=== PATIENT | male | born 1960 | race Caucasian/White ===

== ENCOUNTER 2020-03-09 10:21 | Emergency (ER) | payer MEDICARE, MEDICAID, SELFPAY ==
[2020-03-09 10:33] VITALS: BP 179/130; PULSE 100; RESP 16; TEMP 36.7; O2SAT 95; BMI 27.8
--- NOTE | 2020-03-09 10:49 | ED_ITS ---
HPI - Dental/Oral General Chief complaint: Dental/Oral <CADENCE Conrad - Last Filed: 03/09/20 13:45> Stated complaint: Dental infection <CADENCE Conrad - Last Filed: 03/09/20 13:45> Source: patient <CADENCE Conrad - Last Filed: 03/09/20 13:45> Mode of arrival: ambulatory <CADENCE Conrad - Last Filed: 03/09/20 13:45> Limitations: no limitations <CADENCE Conrad - Last Filed: 03/09/20 13:45> History of Present Illness HPI Narrative: Patient presents to ED for right lower molar dental pain. Patient states no swelling, fever, chills, drooling, chest pain, or shortness of breath. <CADENCE Conrad - Last Filed: 03/09/20 13:45> MD Complaint: tooth pain <CADENCE Conrad Last Filed: 03/09/20 13:45> Related Data Home medications: Previous Rx's Medication Instructions Recorded amlodipine [Norvasc] 5 mg PO DAILY #10 tab 03/09/20 amoxicillin 500 mg PO Q8H #21 cap 03/09/20 oxycodone-acetaminophen [Percocet] 1 tab PO TID PRN #9 tab 03/09/20 penicillin V potassium 1,000 mg PO BID 10 Days #40 tab 03/14/20 <CADENCE Conrad - Last Filed: 03/09/20 13:45> Allergies/adverse reactions: Allergies Allergy/AdvReac Type Severity Reaction Status Date / Time amoxicillin [AMOXICILLIN] Allergy Unknown REDNESS Unverified 12/24/19 17:14 <CADENCE Conrad - Last Filed: 03/09/20 13:45> Review of Systems Review of Systems: Yes all other systems are reviewed and are negative <CADENCE Conrad Last Filed: 03/09/20 13:45> Constitutional: Constitutional: Reports as per HPI and Reports no additional constitutional complaints <CADENCE Conrad Last Filed: 03/09/20 13:45> Eyes: Eyes: Reports as per HPI and Reports no additional eye complaints <CADENCE Conrad Last Filed: 03/09/20 13:45> Comments: Positive for right dental pain. <CADENCE Conrad - Last Filed: 03/09/20 13:45> ENT: Reports system reviewed and no additional complaints, except as documented and Reports as per HPI <CADENCE Conrad - Last Filed: 03/09/20 13:45> Cardiovascular: Cardiovascular: Reports as per HPI and Reports no additional cardiovascular complaints <CADENCE Conrad - Last Filed: 03/09/20 13:45> Respiratory: Respiratory: Reports as per HPI and Reports no additional respiratory complaints <CADENCE Conrad - Last Filed: 03/09/20 13:45> Gastrointestinal: Gastrointestinal: Reports as per HPI and Reports no additional gastrointestinal complaints <CADENCE Conrad - Last Filed: 03/09/20 13:45> Genitourinary: Genitourinary: Reports no additional male genitourinary complaints and Reports as per HPI <CADENCE Conrad - Last Filed: 03/09/20 13:45> Musculoskeletal: Musculoskeletal: Reports no additional musculoskeletal complaints and Reports as per HPI <CADENCE Conrad - Last Filed: 03/09/20 13:45> Neurologic: Reports system reviewed and no additional complaints, except as documented and Reports as per HPI <CADENCE Conrad Last Filed: 03/09/20 13:45> Psychiatric: Psychiatric: Reports no additional psychiatric complaints and Reports as per HPI <CADENCE Conrad Last Filed: 03/09/20 13:45> PMFSH Past Medical History Medical History: Medical History Amputation of arm Seizures <CADENCE Conrad - Last Filed: 03/09/20 13:45> Surgical History: Surgical History H/O brain surgery <CADENCE Conrad - Last Filed: 03/09/20 13:45> Social History Social History: Social History Advance Directives: No Advance Directives Information Provided: No <CADENCE Conrad Last Filed: 03/09/20 13:45> Physical Exam Vital Signs: Vital Signs: Last Vital Signs Temp 98.1 F 03/09/20 10:33 Pulse 100 03/09/20 10:33 Resp 16 03/09/20 10:33 BP 179/130 H 03/09/20 10:33 Pulse Ox 95 03/09/20 10:33 Body Mass Index 27.8 <CADENCE Conrad - Last Filed: 03/09/20 13:45> Vital Signs: Last Vital Signs Temp 98.1 F 03/09/20 10:33 Pulse 100 03/09/20 10:33 Resp 16 03/09/20 10:33 BP 179/130 H 03/09/20 10:33 Pulse Ox 95 03/09/20 10:33 Body Mass Index 27.8 <Nelson Wilson MD - Last Filed: 03/27/20 20:25> Const: General: cooperative, healthy appearing, comfortable, no acute distress, well developed, alert and awake <CADENCE Conrad - Last Filed: 03/09/20 13:45> Orientation/consciousness: patient oriented x3 <CADENCE Conrad - Last Filed: 03/09/20 13:45> HENMT: Other: Patient has 1 tooth in oral cavity within the right lower molar that is tender to palpation. Negative for any surrounding gum swelling or fluctuance abscess. <CADENCE Conrad - Last Filed: 03/09/20 13:45> Head: Yes normal to inspection and Yes No palpable skull fracture present <CDAENCE Conrad - Last Filed: 03/09/20 13:45> Ears: hearing grossly normal bilaterally and external ears normal <CADENCE Conrad - Last Filed: 03/09/20 13:45> General nose exam: Normal external nose present and Normal nares present <CADENCE Conrad Last Filed: 03/09/20 13:45> Face and sinus: Yes normal facial exam and Yes sinuses nontender <CADENCE Conrad Last Filed: 03/09/20 13:45> Mouth: Normal oral and palatal mucosa present and lip normal <CADENCE Conrad Last Filed: 03/09/20 13:45> Throat: Yes posterior oropharynx normal and Yes uvula midline <CADENCE Conrad Last Filed: 03/09/20 13:45> Eyes: General: appearance normal, both eyes and all related structures <CADENCE Conrad Last Filed: 03/09/20 13:45> Neck: Neck: Yes normal visual inspection, Yes full ROM and Yes no lymphadenopathy <CADENCE Conrad Last Filed: 03/09/20 13:45> Chest: Chest palpation & inspection: normal inspection of the chest and normal palpation of entire chest wall <CADENCE Conrad Last Filed: 03/09/20 13:45> Resp: Effort & Inspection: normal respiratory effort and able to speak in complete sentences <Greg Scales [facility] Last Filed: 03/09/20 13:45> Auscultation: clear to auscultation bilaterally <Greg Scales [facility] Last Filed: 03/09/20 13:45> Cardio: Jugular venous distension: no JVD <Greg Scales [facility] Last Filed: 03/09/20 13:45> Heart sounds: S1 normal heart sound present and S2 normal heart sound present <CADENCE Conrad Last Filed: 03/09/20 13:45> GI: Inspection: Yes normal to inspection <Greg Scales [place] Last Filed: 03/09/20 13:45> : General: No CVA tenderness and Yes no CVA tenderness <CADENCE Conrad Last Filed: 03/09/20 13:45> Back/Spine/Pelvis: Back: no CVA tenderness, No CVA tenderness and No back tenderness <CADENCE Conrad Last Filed: 03/09/20 13:45> Skin: General skin exam: no rashes or lesions noted <Greg Scales [place] Last Filed: 03/09/20 13:45> Neuro: General: patient oriented x3, gait normal and CN's II-XI intact bilaterally <CADENCE Conrad Last Filed: 03/09/20 13:45> Cranial nerves: Yes CN's II-XII intact bilaterally <Greg Scales [place] Last Filed: 03/09/20 13:45> Extrem: General: Yes normal to inspection and Yes full ROM <CADENCE Conrad Last Filed: 03/09/20 13:45> Psych: Appearance: grossly normal, well kempt and not disheveled <CADENCE Conrad - Last Filed: 03/09/20 13:45> Course Course Course Narrative: patient states that tooth need to be extracted just wants antibiotics and pain medication. At bedside patient's blood pressure was 170/130 and 183/128. Patient denies having any history of high blood pressure. Patient with in formed pain may also cause an elevated blood pressure, but at the same time cannot exclude this as new onset hypertension due to age. Patient informed he will need to do labs, EKG, head CT just to make sure he is not having a stroke or OR. Patient presently is asymptomatic, but this may be new onset hypertension. Patient denies any history of white coat hypertension. Patient was not agreeable to having labs, EKG, or head CT. Patient was made aware of signs of hypertensive urgency versus emergency. Patient states he will call his PCP for follow-up. Will discharge patient with hypertensive blood medication. <CADENCE Conrad - Last Filed: 03/09/20 13:45> I have reviewed the chart <Nelson Wilson MD - Last Filed: 03/27/20 20:25> Reevaluation(s) Reevaluation #1: Tried to convince patient to let us evaluate him for his blood pressure, but patient still refusing and wants to sign out against medical advice. Patient explained and understand risk of , heart attack, kidney failure, and stroke from elevated high blood pressure. <CADENCE Conrad - Last Filed: 03/09/20 13:45> Time: 10:56 <CADENCE Conrad - Last Filed: 03/09/20 13:45> Reevaluation #2: Upon review patient's prior visits there has been diagnosis of past medical history of of high blood pressure. Upon review of recent prescription for this year from pharmacy portal, patient has not been prescribed or taking any antihypertensive medication. patient will be described with norvasc. Patient also was prescribed clindamycin, but he refused clindamycin. Patient states he has no allergy to amoxicillin. Patient requests amoxicillin. Patient also discharged with percocet. once again patient informed of hypertensive urgency versus emergency and further workup to control blood pressure. Patient still wants to sign out against medical advice. most likely patient is a non- compliant hypertensive patient. <CADENCE Conrad - Last Filed: 03/09/20 13:45> Time: 11:12 <CADENCE Conrad - Last Filed: 03/09/20 13:45> MDM - Dental/Oral MDM Narrative Medical decision making narrative: dental pain, elevated high blood pressure <CADENCE Conrad Last Filed: 03/09/20 13:45> Discharge Plan Discharge Clinical Impression: Toothache, Hypertension <CADENCE Conrad Last Filed: 03/09/20 13:45> Patient Disposition: Left Against Medical Advice <CADENCE Conrad - Last Filed: 03/09/20 13:45> Instructions: Toothache (ED), Hypertension in the Older Adult (ED) <CADENCE Conrad Last Filed: 03/09/20 13:45> Additional Instructions: return to the ED immediately for any headache, blurry vision, paralysis of extremities, slurred speech, loss of vision, chest pain, shortness of breath, or any other concerning symptoms. Please call your PCP today immediately and make him aware of elevated blood pressure in the ED. Recommended immediate follow-up. <CADENCE Conrad - Last Filed: 03/09/20 13:45> Prescriptions: New oxycodone-acetaminophen [Percocet] 5-325 mg tablet 1 tab PO TID PRN (Reason: pain) Qty: 9 RF: 0 amlodipine [Norvasc] 5 mg tablet 5 mg PO DAILY Qty: 10 RF: 0 amoxicillin 500 mg capsule 500 mg PO Q8H Qty: 21 RF: 0 No Action penicillin V potassium 500 mg tablet 1,000 mg PO BID 10 Days Qty: 40 RF: 0 <CADENCE Conrad - Last Filed: 03/09/20 13:45> Stand Alone Forms: Against Medical Advice <CADENCE Conrad Last Filed: 03/09/20 13:45> Interventions: ED Discharge Assessment Last Done: 03/09/20 11:21 <CADENCE Conrad Last Filed: 03/09/20 13:45> Discharge Date/Time: 03/09/20 11:22 <CADENCE Conrad Last Filed: 03/09/20 13:45> Print Language: [place] <CADENCE Conrad - Last Filed: 03/09/20 13:45>
--- NOTE | 2020-03-09 11:04 | PC.NURSE ---
pt decliined pain medication during triage and exam by oniel ornelas, pt was to be discharged ama now pt requesting med for pain
[2020-03-09] MEDS: oxyCODONE HCl Immed Release 5 MG TABLET PO (11:13)
== END 2020-03-09 11:22 | disposition left against medical advice (07) ==
PROVIDERS: Emergency Provider Emergency Medicine
DX: K04.7 Periapical abscess without sinus (principal); I10 Essential (primary) hypertension; Z79.899 Other long term (current) drug therapy
CPT/HCPCS: 99283

== ENCOUNTER 2020-03-14 14:05 | Emergency (ER) | payer MEDICARE, MEDICAID, SELFPAY ==
[2020-03-14 14:42] VITALS: BP 189/105; PULSE 95; RESP 18; TEMP 36.5; O2SAT 95; BMI 27.4
--- NOTE | 2020-03-14 15:06 | PC.NURSE ---
PT REFUSING MEDICAL WORK UP BY CADENCE BATES. PT DOES NOT WANT EKG OR BLOOD WORK OR ANY IMAGING AT THIS TIME. RISKS EXPLAINED AND EDUCATION PROVIDED BY THIS RN.
--- NOTE | 2020-03-14 15:08 | ED_ITS ---
HPI - General Adult General Chief complaint: General Medical Stated complaint: jaw and neck pain.problem closing hand Time Seen by Provider: 03/14/20 15:01 Source: patient Mode of arrival: ambulatory Limitations: no limitations History of Present Illness HPI narrative: 59-year-old male presenting to the ED with with complaints of pain to teeth they were extracted going to his neck and his jaw for the past few months. He reports when he was seen here the other day that he was bagging for amoxicillin and they did not give him a strong enough dose he wants 875 mg of amoxicillin although I explained to him that he reported amoxicillin as an allergy and he reports that he is not actually allergic he just gets a bread therefore he still wants amoxicillin 875 or he wants penicillin 1000 mg. I noticed that the patient blood pressure was elevated and I explained to him that I would like to take some blood work, chest x-ray and EKG and patient reports that he will not have any of that done due to he is not having any symptoms from his high blood pressure. He reports he has not started the high blood pressure medication that he was given on 03/09/2020 and that he has not followed up with a primary care provider or a type photography supervisor that he needs to take care of his dental pain/ infection before he does any of that. He denies any other symptom complaints or concerns at this time. Related Data Previous Rx's Medication Instructions Recorded amlodipine [Norvasc] 5 mg PO DAILY #10 tab 03/09/20 amoxicillin 500 mg PO Q8H #21 cap 03/09/20 oxycodone-acetaminophen [Percocet] 1 tab PO TID PRN #9 tab 03/09/20 penicillin V potassium 1,000 mg PO BID 10 Days #40 tab 03/14/20 Allergies Allergy/AdvReac Type Severity Reaction Status Date / Time amoxicillin [AMOXICILLIN] Allergy Unknown REDNESS Unverified 12/24/19 17:14 Review of Systems Review of Systems: Constitutional : No Fever, No Chills, No Night Sweats, No Fatigue, No Malaise ENT/Mouth : No Hearing loss, No Ear Pain, No Nasal Congestion, No Sinus Pain, No Hoarseness, No sore throat, No Rhinorrhea, No Swallowing Difficulty, + Dental/jaw/neck pain Eyes: No Eye Pain, No Swelling, No Redness, No Foreign Body, No Discharge, No Vision Changes Cardiovascular : No Chest Pain, No SOB, No Dyspnea on Exertion, No Orthopnea, No Edema, No Palpitations Respiratory : No Cough, No Sputum, No Wheezing, No Smoke Exposure, No Dyspnea Gastrointestinal : No Nausea, No Vomiting, No Diarrhea, No Constipation, No abdominal Pain, No Hematochezia, No Melena Genitourinary : no irregular bleeding, No Dysuria, No Urinary Frequency, No Hematuria, No Urinary Incontinence, No Urgency, No Flank Pain, No Urinary Flow Changes, No Hesitancy Musculoskeletal : No joint pain, No Myalgias, No Joint Swelling Skin : No Skin Lesions, No rash Neuro : No Weakness, No Numbness, No Paresthesias, No Loss of Consciousness, No Dizziness, No Headache Psych : No Anxiety/Panic, No Depression, No SI/HI/AH/VH, No Social Issues, Heme/Lymph: No Bruising, No Bleeding,No Lymphadenopathy Endocrine : No Polyuria, No Polydipsia, No Temperature Intolerance Yes all other systems are reviewed and are negative [facility] Past Medical History Attestation statement: The following information was validated with the patient. Medical History Amputation of arm Seizures Surgical History H/O brain surgery Social History Social History Advance Directives: No Advance Directives Information Provided: No Physical Exam Vital Signs: Vital Signs: Last Vital Signs Temp 97.7 F 03/14/20 14:42 Pulse 95 03/14/20 14:42 Resp 18 03/14/20 14:42 BP 189/105 H 03/14/20 14:42 Pulse Ox 95 03/14/20 14:42 Body Mass Index 27.4 vital signs have been reviewed as normal and appeared to be correct. Blood p ressure normal. Heart rate normal. Respiration rate normal. Temperature normal. Oxygen saturation normal. Appearance: Alert. Oriented X3. No acute distress. Head: Normal external exam. Normocephalic. Atraumatic. Eyes: PERRLA. EOMI. Conjunctiva and sclera normal. Eyelids normal. ENT: EAC normal. TM's Normal. Pharynx normal. Uvula midline. Moist mucous membranes. No trismus noted. No drooling noted. No muffled voice noted. Patient has 1 tooth an oral cavity within the right lower molar that is tender to palpation. Negative for any surrounding gum swelling or fluctuant abscesses. Neck: Normal inspection. Neck supple. FROM. No adenopathy. Thyroid Normal. No meningeal signs. No neck mass noted. CVS: Normal heart rate and rhythm. Heart sound normal. No murmurs noted. Pulses normal throughout. Respiratory: No respiratory distress. Painless inspiration. Breath sounds normal. No wheezes/rales/rhonchi noted. Chest nontender. No accessory muscle usage noted or decreased air movement noted. Back: Full range of motion noted. Skin: Skin warm and dry. Normal skin color. Normal skin turgor. No rashes/lesions/lacerations noted. Extremities: Extremities exhibit normal range of motion. Extremities nontender. Neuro: Oriented X 3. No motor deficit. No sensory deficit. Reflexes normal. Course Course Course Narrative: Patient reports that his tube needs to be extracted although he needs to make an appointment with his dentist and he just wants antibiotics at this time he is requesting either amoxicillin 875 or penicillin 1000 mg. I explained to the patient's blood pressure was elevated same as last visit here and he reports that he has not taking blood pressure medication and he will not started due to he wants to take care of his dental pain / infection and he takes his medications for seizures and that is more important. I explained to him that this is dangerous she should start taking blood pressure medication and I explained to him that he should have labs, EKG, CT scan of brain and chest x- ray to make sure that he is not having a stroke or an NE although patient reports that he is asymptomatic and he is refusing all evaluation and treatment. I will DC against medical advice with antibiotics and instructions to follow- up with Dr. Morales and his primary care provider. Patient understands and agrees with this plan although reports that he does not think that this is important. I explained to him that he can return at any time. Patient understands agrees with this. Medical Decision Making Medical Records Medical records reviewed: Yes I reviewed the patient's medical records. Discharge Plan Discharge Clinical Impression: Tooth ache, Hypertension Patient Disposition: Left Against Medical Advice Instructions: Hypertension (ED), Toothache (ED) Additional Instructions: Uses start your blood pressure medication as this is the 2nd visit with her blood pressure has been elevated today it was 189/105. I offered do a workup and you want to leave against medical advice this is the 2nd time you do this this is dangerous you can . Please follow-up with the type photography supervisor and a primary care provider as soon as possible and start taking your blood pressure medication that was prescribed on last visit as soon as possible. Prescriptions: New penicillin V potassium 500 mg tablet 1,000 mg PO BID 10 Days Qty: 40 RF: 0 No Action oxycodone-acetaminophen [Percocet] 5-325 mg tablet 1 tab PO TID PRN (Reason: pain) Qty: 9 RF: 0 amlodipine [Norvasc] 5 mg tablet 5 mg PO DAILY Qty: 10 RF: 0 amoxicillin 500 mg capsule 500 mg PO Q8H Qty: 21 RF: 0 Referrals: Jayme Morales MD [Physician] - 2 days ( hypertension) Physician,Unknown [Primary Care Provider] - 2 days (your pcp) Stand Alone Forms: Against Medical Advice Discharge Date/Time: 03/14/20 15:26 Print Language: Telugu
== END 2020-03-14 15:26 | disposition left against medical advice (07) ==
PROVIDERS: Emergency Provider Emergency Medicine
DX: K08.89 Other specified disorders of teeth and supporting structures (principal); I10 Essential (primary) hypertension
CPT/HCPCS: 99282; 99283

== ENCOUNTER 2020-05-04 15:30 | Emergency (ER) | payer MEDICARE, MEDICAID, SELFPAY ==
[2020-05-04 16:45] VITALS: BP 210/119; PULSE 91; RESP 16; TEMP 36.3; O2SAT 98; BMI 29.0
--- NOTE | 2020-05-04 16:58 | ED_ITS ---
HPI - Dental/Oral General Chief complaint: Dental/Oral Stated complaint: Dental pain Time Seen by Provider: 05/04/20 16:46 Source: patient Mode of arrival: ambulatory Limitations: no limitations History of Present Illness HPI Narrative: Patient comes emergency room complaining of dental pain. Patient only has 1 tooth. Patient states he has had extensive surgery in his gums and jaw after an accident. Patient states he was recently on ampicillin. Patient states that he continues having pain despite a 2 week treatment of ampicillin. Patient states he call his dentist, told him to come to the emergency room for a prescription. It was noted on his allergy reaction was in that amoxicillin is listed, patient states he is not allergic to ampicillin or penicillin. Patient denies any fever, no chills, no ear pain. Patient requesting a prescription to bridge him until he sees his dentist. Related Data Previous Rx's Medication Instructions Recorded amlodipine [Norvasc] 5 mg PO DAILY #10 tab 03/09/20 amoxicillin 500 mg PO Q8H #21 cap 03/09/20 oxycodone-acetaminophen [Percocet] 1 tab PO TID PRN #9 tab 03/09/20 penicillin V potassium 1,000 mg PO BID 10 Days #40 tab 03/14/20 penicillin V potassium 500 mg PO TID 10 Days #30 tab 05/04/20 Allergies Allergy/AdvReac Type Severity Reaction Status Date / Time amoxicillin [AMOXICILLIN] Allergy Unknown REDNESS Unverified 12/24/19 17:14 Review of Systems Review of Systems: Constitutional : No Weight loss, No Fever, No Chills, No Night Sweats, No Fatigue, No Malaise ENT/Mouth : No Hearing loss, No Ear Pain, No Nasal Congestion, No Sinus Pain, No Hoarseness, No sore throat, No Rhinorrhea, No Swallowing Difficulty, complaining of acute on chronic dental pain in the right maxilla Eyes: No Eye Pain, No Swelling, No Redness, No Foreign Body, No Discharge, No Vision Changes Cardiovascular : No Chest Pain, No SOB, No Dyspnea on Exertion, No Orthopnea, No Edema, No Palpitations Respiratory : No Cough, No Sputum, No Wheezing, No Smoke Exposure, No Dyspnea Gastrointestinal : No Nausea, No Vomiting, No Diarrhea, No Constipation, No abdominal Pain, No Hematochezia, No Melena Genitourinary : no irregular bleeding, No Dysuria, No Urinary Frequency, No Hematuria, No Urinary Incontinence, No Urgency, No Flank Pain, No Urinary Flow Changes, No Hesitancy Musculoskeletal : No joint pain, No Myalgias, No Joint Swelling Skin : No Skin Lesions, No rash Neuro : No Weakness, No Numbness, No Paresthesias, No Loss of Consciousness, No Dizziness, No Headache Psych : No Anxiety/Panic, No Depression, No SI/HI/AH/VH, No Social Issues, Heme/Lymph: No Bruising, No Bleeding,No Lymphadenopathy Endocrine : No Polyuria, No Polydipsia, No Temperature Intolerance [facility] Past Medical History Medical History Amputation of arm Seizures Surgical History H/O brain surgery Social History Social History Smoked in Last 30 Days: No Use of substances other than those prescribed or required for medical reasons: No Advance Directives: No Advance Directives Information Provided: Yes Physical Exam Vital Signs: Vital Signs: Last Vital Signs Temp 97.4 F 05/04/20 16:45 Pulse 91 05/04/20 16:45 Resp 16 05/04/20 16:45 BP 210/119 H 05/04/20 16:45 Pulse Ox 98 05/04/20 16:45 Body Mass Index 29.0 Appearance: Alert. Oriented X3. No acute distress. Eyes: Pupils equal, round and reactive to light. ENT: Pharynx normal. Pain to palpation on the gum on the right maxilla, no redness, no pus Neck: Normal inspection. Neck supple. No lymph nodes noted. No crepitus CVS: Normal heart rate and rhythm. Pulses normal. Normal S1 and S2 Respiratory: No respiratory distress. Breath sounds normal. No Wheezing. No rales Abdomen: Soft and nontender. No rigidity. No distention. good BS x4 Skin: Skin warm and dry. Normal skin color. Normal skin turgor. Extremities: No lower extremity edema. No lower extremity edema. No Lacerati ons. No Rash Neuro: Oriented X 3. No motor deficit. No sensory deficit. Moving all extermities. No slurred speech. Course Course Course Narrative: I discussed with the patient that we can bridge him, however he needs to have close follow-up with all his specialists due to his extensive dental history. Patient states that he he is not allergic to penicillin or ampicillin, only amoxicillin Discharge Plan Discharge Clinical Impression: Chronic dental pain Patient Disposition: Home, Self-Care Instructions: Toothache (ED) Prescriptions: New penicillin V potassium 500 mg tablet 500 mg PO TID 10 Days Qty: 30 RF: 0 No Action oxycodone-acetaminophen [Percocet] 5-325 mg tablet 1 tab PO TID PRN (Reason: pain) Qty: 9 RF: 0 amlodipine [Norvasc] 5 mg tablet 5 mg PO DAILY Qty: 10 RF: 0 amoxicillin 500 mg capsule 500 mg PO Q8H Qty: 21 RF: 0 penicillin V potassium 500 mg tablet 1,000 mg PO BID 10 Days Qty: 40 RF: 0
== END 2020-05-04 17:27 | disposition home or self-care (01) ==
PROVIDERS: Emergency Provider Emergency Medicine
DX: K02.9 Dental caries, unspecified (principal)
CPT/HCPCS: 99283

== ENCOUNTER 2020-08-18 13:30 | Emergency (ER) | payer MEDICARE, MEDICAID, SELFPAY ==
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
[2020-08-18 14:39] VITALS: BP 173/118; PULSE 87; RESP 16; TEMP 36.6; O2SAT 96; BMI 26.7
== END 2020-08-18 15:09 | disposition home or self-care (01) ==
PROVIDERS: Emergency Provider Emergency Medicine
DX: M26.602 Left temporomandibular joint disorder, unspecified (principal); R03.0 Elevated blood-pressure reading, without diagnosis of hypertension
CPT/HCPCS: 99283

== ENCOUNTER 2020-09-30 13:39 | Emergency (ER) | payer MEDICARE, MEDICAID, SELFPAY ==
[2020-09-30 13:55] VITALS: BP 214/110; PULSE 93; RESP 18; O2SAT 97; BMI 28.5
--- NOTE | 2020-09-30 14:52 | ED_ITS ---
HPI - General Adult General Chief complaint: General Medical Stated complaint: seeking antibiotics Time Seen by Provider: 09/30/20 14:32 Source: patient Mode of arrival: ambulatory Limitations: no limitations History of Present Illness HPI narrative: 59-year-old male with past mental history of TBI, left arm amputation, and anxiety presents with dental pain requesting antibiotics. States that he has had all but 1 tooth removed, and is reporting that he needs surgery. Patient is speaking tangentially, consistent with prior presentations as well as TBI. Patient needs multiple redirections to stay on task however states that his primary concern is the dental infection. He does have an appointment to have this tooth removed. Does not report any pain when opening his jaw, is able to eat and drink with minimal difficulty, denies fevers, chills, chest pain or pressure, palpitations, shortness of breath, shortness of breath on exertion, abdominal pain, abdominal distention, dysuria, hematuria, and edema. He does have a right-sided motility problems per baseline. Onset (ago): day(s) Location: mouth Radiation: non-radiation Severity: moderate Severity scale (1-10): 6 Quality: aching Pain Consistency: constant Relieving factors: none Exacerbating factors: eating Associated symptoms: denies other symptoms Treatments prior to arrival: none Related Data Previous Rx's Medication Instructions Recorded amlodipine [Norvasc] 5 mg PO DAILY #10 tab 03/09/20 amoxicillin 500 mg PO Q8H #21 cap 03/09/20 oxycodone-acetaminophen [Percocet] 1 tab PO TID PRN #9 tab 03/09/20 penicillin V potassium 1,000 mg PO BID 10 Days #40 tab 03/14/20 penicillin V potassium 500 mg PO TID 10 Days #30 tab 05/04/20 amoxicillin 875 mg PO BID #14 tab 08/18/20 hydrocodone-acetaminophen 1 tab PO Q6H PRN #7 tab 08/18/20 amoxicillin-pot clavulanate 1 tab PO Q12H 10 Days #20 tab 09/30/20 [Augmentin] amoxicillin-pot clavulanate 1 tab PO Q12H 10 Days #20 tab 09/30/20 [Augmentin] Allergies Allergy/AdvReac Type Severity Reaction Status Date / Time amoxicillin [AMOXICILLIN] Allergy Intermediate REDNESS Verified 09/30/20 13:54 Review of Systems Review of Systems: Constitutional: No Fever, No Chills ENT/Mouth: Positive dental pain, No Ear Pain, No Hoarseness, No sore throat Eyes: No Eye Pain, No Swelling, No Redness, No Foreign Body Cardiovascular: No Chest Pain, No SOB Respiratory: No Cough, No Dyspnea Gastrointestinal: No Nausea, No Vomiting, No Diarrhea, No abdominal Pain Genitourinary: No Dysuria, No Hematuria Musculoskeletal: No joint pain, No Myalgias, No Joint Swelling Skin: No Skin lacerations, No rash Neuro: No Weakness, No Numbness, No Paresthesias, No Loss of Consciousness, No Dizziness, No Headache Psych: No Anxiety/Panic, No Depression Heme/Lymph: no easy bruising, no Lymphadenopathy Endocrine: No Polyuria, No Polydipsia Yes all other systems are reviewed and are negative [facility] Past Medical History Attestation statement: The following information was validated with the patient. Source: old records reviewed Medical History Amputation of arm COVID-19 Seizures Surgical History H/O brain surgery Social History Social History Advance Directives: Yes Advance Directives Information Provided: No Advance Directives on File: No Physical Exam Vital Signs: Vital Signs: Last Vital Signs Pulse 88 09/30/20 15:12 Resp 18 09/30/20 15:12 BP 185/111 H 09/30/20 15:12 Pulse Ox 97 09/30/20 15:12 Body Mass Index 28.5 Appearance: Alert. Oriented X3. No acute distress. Eyes: Pupils equal, round and reactive to light. ENT: Pharynx normal. Dental caries noted to the base of the only tooth in his mouth Neck: Normal inspection. Neck supple. CVS: Normal heart rate and rhythm. Pulses normal. Respiratory: No respiratory distress. Breath sounds normal. Abdomen: Soft and nontender. Skin: Skin warm and dry. Normal skin color. Normal skin turgor. Extremities: No lower extremity edema. Neuro: No motor deficit. No sensory deficit. Course Course Course Narrative: 59-year-old male presents with dental pain. Does not have an abscess but does have multiple caries to the only tooth in his mouth. Will treat with Augmentin and discharge patient home. Patient does have a history of a TBI, is a poor historian, and requires multiple redirection to stay on task. He is afebrile, vital signs are within normal limits and stable with the exception of his elevated blood pressure. He does report to have blood pressure problems, has not seen his primary care physician recently. Multiple discussions with patient regarding elevated blood pressure, he will follow-up with his primary care physician which she has an appointment in [place] later this week. Patient does have an upcoming appointment to remove the only tooth in his mouth, it is difficult to determine what number tooth this is as he has only 1. Patient verbalized understanding of and agrees to plan of care discharge home. Medical Decision Making MDM Narrative Medical decision making narrative: Dental abscess, dental caries Medical Records Medical records reviewed: Yes I reviewed the patient's medical records. Discharge Plan Discharge Clinical Impression: Chronic dental infection Patient Disposition: Home, Self-Care Instructions: Toothache (ED) Additional Instructions: You were evaluated for chronic dental pain. Please take Augmentin 875 mg twice a day for the next 10 days. Follow up with your dentist. While you were in the emergency department was noted that your blood pressure was elevated. Please follow-up the primary care physician as you may need medications to control your blood pressure. Thank you for choosing this emergency department for evaluation. Please follow-up with primary care physician as needed. Return to the emergency department for any new, concerning, or worsening symptoms. Prescriptions: New amoxicillin-pot clavulanate [Augmentin] 875-125 mg tablet 1 tab PO Q12H 10 Days Qty: 20 RF: 0 amoxicillin-pot clavulanate [Augmentin] 875-125 mg tablet 1 tab PO Q12H 10 Days Qty: 20 RF: 0 No Action hydrocodone-acetaminophen 5-325 mg tablet 1 tab PO Q6H PRN (Reason: pain) Qty: 7 RF: 0 amoxicillin 875 mg tablet 875 mg PO BID Qty: 14 RF: 0 oxycodone-acetaminophen [Percocet] 5-325 mg tablet 1 tab PO TID PRN (Reason: pain) Qty: 9 RF: 0 amlodipine [Norvasc] 5 mg tablet 5 mg PO DAILY Qty: 10 RF: 0 amoxicillin 500 mg capsule 500 mg PO Q8H Qty: 21 RF: 0 penicillin V potassium 500 mg tablet 1,000 mg PO BID 10 Days Qty: 40 RF: 0 penicillin V potassium 500 mg tablet 500 mg PO TID 10 Days Qty: 30 RF: 0 Interventions: ED Discharge Assessment Last Done: 09/30/20 15:34 Discharge Date/Time: 09/30/20 15:37
[2020-09-30 15:12] VITALS: BP 185/111; PULSE 88; RESP 18; O2SAT 97
[2020-09-30] MEDS: Amoxicillin/Potassium Clav 875 MG TABLET PO (15:23)
== END 2020-09-30 15:37 | disposition home or self-care (01) ==
PROVIDERS: Emergency Provider Emergency Medicine
DX: K04.7 Periapical abscess without sinus (principal); K02.9 Dental caries, unspecified; Z87.820 Personal history of traumatic brain injury; Z89.202 Acquired absence of left upper limb, unspecified level
CPT/HCPCS: 99283

== ENCOUNTER 2020-12-02 16:29 | Emergency (ER) | payer MEDICARE, MEDICAID, SELFPAY ==
[2020-12-02 16:48] VITALS: BP 140/57; PULSE 96; RESP 18; TEMP 36.9; O2SAT 98; BMI 29.0
--- NOTE | 2020-12-02 19:20 | PC.NURSE ---
pt refusing lab work, reports he will only have lab work drawn by a anesthesiologist because he turns black and blue and screams .
--- NOTE | 2020-12-02 19:31 | PC.NURSE ---
pt refusing CT and X-ray, reporting that he knows he has an infection and he just needs Penicillin
--- NOTE | 2020-12-02 19:37 | PC.NURSE ---
pt spoke with . he continues to refuse lab work and imaging. pt was agreeable to being COVID swabbed. he started to this RN, when will be that back? will you call me? I need to get out of here I have my 80 year old father in the car and I need to go somewhere else to get antibiotics
[2020-12-02 21:27] LABS: Influenza A PCR NEGATIVE (Negative); Influenza B PCR NEGATIVE (Negative); Resp Syncy Virus RNA Qual PCR NEGATIVE (Negative); SARS COV2 PCR INHOUSE NEGATIVE (Negative)
--- NOTE | 2020-12-02 21:28 | ED.GENADULT ---
HPI - General Adult General Chief complaint: General Medical Stated complaint: infection in jaw Time Seen by Provider: 12/02/20 21:28 Related Data Previous Rx's Medication Instructions Recorded amlodipine 5 mg tablet (Norvasc) 5 mg PO DAILY #10 tab 03/09/20 amoxicillin 500 mg capsule 500 mg PO Q8H #21 cap 03/09/20 oxycodone-acetaminophen 5 mg-325 1 tab PO TID PRN #9 tab 03/09/20 mg tablet (Percocet) penicillin V potassium 500 mg 1,000 mg PO BID 10 Days #40 tab 03/14/20 tablet penicillin V potassium 500 mg 500 mg PO TID 10 Days #30 tab 05/04/20 tablet amoxicillin 875 mg tablet 875 mg PO BID #14 tab 08/18/20 hydrocodone 5 mg-acetaminophen 325 1 tab PO Q6H PRN #7 tab 08/18/20 mg tablet amoxicillin 875 mg-potassium 1 tab PO Q12H 10 Days #20 tab 09/30/20 clavulanate 125 mg tablet (Augmentin) amoxicillin 875 mg-potassium 1 tab PO Q12H 10 Days #20 tab 09/30/20 clavulanate 125 mg tablet (Augmentin) Allergies Allergy/AdvReac Type Severity Reaction Status Date / Time amoxicillin [AMOXICILLIN] Allergy Intermediate REDNESS Verified 12/02/20 16:48 PMFSH Past Medical History Medical History Amputation of arm COVID-19 Seizures Surgical History H/O brain surgery Social History Social History Advance Directives: No Advance Directives Information Provided: Yes Physical Exam Vital Signs: Vital Signs: Last Vital Signs Temp 98.4 F 12/02/20 16:48 Pulse 96 12/02/20 16:48 Resp 18 12/02/20 16:48 BP 140/57 H 12/02/20 16:48 Pulse Ox 98 12/02/20 16:48 Body Mass Index 29.0 Medical Decision Making Lab Data Labs: Lab Results 12/02/20 Range/Units 20:22 Coronavirus (PCR) NEGATIVE (Negative) Influenza Type A (PCR) NEGATIVE (Negative) Influenza Type B (PCR) NEGATIVE (Negative) RSV RNA Qual (PCR) NEGATIVE (Negative) Discharge Plan Discharge Clinical Impression: General medical exam Patient Disposition: Elopement Prescriptions: No Action hydrocodone-acetaminophen 5-325 mg tablet 1 tab PO Q6H PRN (Reason: pain) Qty: 7 RF: 0 amoxicillin 875 mg tablet 875 mg PO BID Qty: 14 RF: 0 oxycodone-acetaminophen [Percocet] 5-325 mg tablet 1 tab PO TID PRN (Reason: pain) Qty: 9 RF: 0 amlodipine [Norvasc] 5 mg tablet 5 mg PO DAILY Qty: 10 RF: 0 amoxicillin 500 mg capsule 500 mg PO Q8H Qty: 21 RF: 0 penicillin V potassium 500 mg tablet 1,000 mg PO BID 10 Days Qty: 40 RF: 0 penicillin V potassium 500 mg tablet 500 mg PO TID 10 Days Qty: 30 RF: 0 amoxicillin-pot clavulanate [Augmentin] 875-125 mg tablet 1 tab PO Q12H 10 Days Qty: 20 RF: 0 amoxicillin-pot clavulanate [Augmentin] 875-125 mg tablet 1 tab PO Q12H 10 Days Qty: 20 RF: 0 Interventions: ED Discharge Assessment Last Done: 12/02/20 21:41 Discharge Date/Time: 12/02/20 21:42
== END 2020-12-02 21:42 | disposition left against medical advice (07) ==
PROVIDERS: Emergency Provider Student in an Organized Health Care Education/Training Program
DX: R68.84 Jaw pain (principal); Z20.822 Contact with and (suspected) exposure to COVID-19
CPT/HCPCS: 0241U; 36415; 99282; 99283

== ENCOUNTER 2021-11-30 14:42 | Outpatient (REF) | payer MEDICARE, MEDICAID, SELFPAY ==
--- NOTE | ~2021-11-30 | XR_ITS ---
EXAMINATION: XR SHOULDER, RIGHT CLINICAL INFORMATION: Pain COMPARISON: None TECHNIQUE: AP external rotation, Grashey, scapular Y, and axillary views of the right shoulder. FINDINGS: Bone alignment is normal. No fracture or dislocation is seen. There is mild arthritis at the glenohumeral and acromioclavicular joints. Soft tissues are unremarkable. XR/XR shoulder RT min 2V IMPRESSION: Arthritis.
== END 2021-11-30 14:43 | disposition home or self-care (01) ==
LOC: HO.HOSX 14:42
PROVIDERS: Visit Provider Orthopaedic Surgery
DX: M19.011 Primary osteoarthritis, right shoulder (principal); M24.549 Contracture, unspecified hand
CPT/HCPCS: 73030; 99202

== ENCOUNTER 2021-12-26 13:00 | Outpatient (RCR) | payer MEDICARE, MEDICAID, SELFPAY ==
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
== END 2021-12-26 14:01 | disposition home or self-care (01) ==
LOC: HO.OT 13:00
PROVIDERS: Visit Provider Orthopaedic Surgery
DX: M24.541 Contracture, right hand (principal)
CPT/HCPCS: 97110; 97167; 97530

== ENCOUNTER 2022-02-13 15:00 | Outpatient (RCR) | payer MEDICARE, MEDICAID, SELFPAY ==
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
--- NOTE | 2022-03-28 10:21 | MHC.PT.DC ---
[facility] [place] Office [place] Office [place] Office [address] [phone] F: [phone] F: [phone] F: [phone] F: [phone] Physical Therapy Discharge Report Diagnosis: Primary OA R shoulder Date of Surgery: Date of Evaluation: 01/09/22 Date of Discharge: 03/28/22 Treatments to Date: 3 Cancellations to Date: 0 No Shows to Date: 0 Discharge Status: Physician Discontinued Tx Discharge Summary: Pt did not f/u with final visit. He had poor carryover of exercises for I HEP d/t PMH of brain injury. His shoulder progress appears to be most limited secondary to tone, motor control, and carryover secondary to brain injury. D/c at this time. He would benefit from services at home to assist with ADL's and services executive, pt does not want this at this time. Electronically signed by: Desire Stuart PT Please sign and return to therapist. Thank you for your referral.
== END 2022-03-28 10:21 | disposition home or self-care (01) ==
LOC: HO.PT 15:00
PROVIDERS: Visit Provider Orthopaedic Surgery
DX: M19.011 Primary osteoarthritis, right shoulder (principal)
CPT/HCPCS: 97110; 97163

== ENCOUNTER 2025-02-24 14:37 | Outpatient (AMB) | payer MEDICARE, MEDICAID, SELFPAY ==
--- OUTSIDE RECORDS SUMMARY | 2025-02-19 23:59 | XMS_ITS | Continuity of Care Document ---
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 Name Role Phone Not on Staff, PCP Primary Care Physician Unavail able [place] [facility] [place]): 01/20/25 - 02/19/[address] [facility] [address] [place] [id number] Attending Physician: Celestina Pa Admitting Physician: AdmCelestina ham Referring Physician: AdmtrCelestina Encounter Type: Triage Allergies, Adverse Reactions, Alerts No Known Allergies Immunizations Given and Recorded Vaccine Date Status Refusal Reason influenza virus vaccine, inactivated 04/25/23 Griffin rded influenza virus vaccine, inactivated 02/13/22 Griffin rded influenza virus vaccine, inactivated 03/09/20 Griffin rded influenza virus vaccine, inactivated 02/19/19 Griffin rded influenza virus vaccine, inactivated 01/29/19 Griffin rded SARS-CoV-2 (COVID-19) mRNA BNT-162b2 vac 07/08/20 Recorded SARS-CoV-2 (COVID-19) mRNA BNT-162b2 vac 06/16/20 Recorded tetanus-diphtheria toxoids (Td) 05/02/17 Recorded Medications ibuprofen 600 mg oral tablet 1 tablet = 600 mg, By Mouth, Every 6 hours, # 40 tablet, 0 Refills, Maintenance, 08/09/12 7:07:30 PM EDT, Tablet Start Date: 08/09/12 Status: Ordered Medication Dispense Status: Completed Quantity: 40.0 Unit: tablet Total Allowed Fills: 1 Fills Dispensed: 0 magnesium (as citrate) 85 mg oral tablet, chewable 4 tablet = 340 mg, By Mouth, Daily, 0 Refills, Maintenance, 01/06/25 11:27:00 AM EDT, Partial fill upon patient request if the prescription is for a schedule II opioid drug. Start Date: 01/06/25 Status: Ordered Medication Dispense Status: Completed Total Allowed Fills: 1 Fills Dispensed: 0 Vitamin B12 0 Refills, Maintenance, 01/06/25 11:27:00 AM EDT, Partial fill upon patient request if the prescription is for a schedule II opioid drug. Start Date: 01/06/25 Status: Ordered Medication Dispense Status: Completed Total Allowed Fills: 1 Fills Dispensed: 0 Problem List Condition Confirmation Course Effective Dates Status Health [facility]us Informant History of coma Confirmed Active History of DVT (deep vein thrombosis) Confirmed Active Social History Social History Type Response Sex Sex Representation Male (finding) Patient Care team information Care Team Personnel Name: Not on Staff, PCP Position: S Physician (General Medicine) Member Role: PCP Care Team Related Persons Name: MARY ANNE WASSERMAN Name: MOUNIKA BENNETT Insurance Providers Guarantor name: DELIA Health Plan Information #: 1 Payer: MEDICARE B Payer Identifier: DELIA Member Number: [id number] Group Number: DELIA Subscriber Identifier: DELIA Relationship to Subscriber: self Coverage Type: NA Coverage Verification Date: NA Telecom: NA Address: Health Plan Information #: 2 Payer: [employer] Payer Identifier: DELIA Member Number: [id number] Group Number: DELIA Subscriber Identifier: DELIA Relationship to Subscriber: self Coverage Type: MEDICAID Coverage Verification Date: NA Telecom: NA Address:
--- OUTSIDE RECORDS SUMMARY | 2025-02-19 23:59 | XMS_ITS | Continuity of Care Document ---
Author Organization [facility] Adult Address [address] [place] [address]- Care Team Providers Care Cartridge Loader Name Role Phone Not on Staff, PCP Primary Care Physician Unavail able Encounter [facility] Date(s): 11/12/24 - 02/19/25 [facility] [address] [place] [address]- Attending Physician: Aisha Clements MD Encounter Type: Pre Office Visit Allergies, Adverse Reactions, Alerts No Known Allergies [...] of DVT (deep vein thrombosis) Confirmed Active Procedures Procedure Date Related Diagnosis Body Site Status Forequarter amputation, left 1977 Completed Foot right surgery Comple tayo Social History Social History Type Response Sex Sex Representation Male (finding) Patient Care team information Care Team Personnel Name: Not on Staff, PCP Position: S Physician (General Medicine) Member Role: PCP Care Team Related Persons Name: MARY ANNE WASSERMAN Name: MOUNIKA BENNETT Insurance Providers Guarantor name: DELIA Health Plan Information #: 1 Payer: MEDICARE B Payer Identifier: DELIA Member Number: [id number] Group Number: DELIA Subscriber Identifier: [id number] Relationship to Subscriber: self Coverage Type: NA Coverage Verification Date: NA Telecom: Address: Health Plan Information #: 2 Payer: [employer] Payer Identifier: DELIA Member Number: [id number] Group Number: NA Subscriber Identifier: [id number] Relationship to Subscriber: self Coverage Type: MEDICAID Coverage Verification Date: Telecom: Address:
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
[2025-02-24 14:54] VITALS: BP 140/86; PULSE 95; TEMP 36.8; O2SAT 98; BMI 26.7
--- OUTSIDE RECORDS SUMMARY | 2025-02-25 03:04 | XMS_ITS | Clinical Summary ---
Author Organization [facility] Address [address] [address] Phone Care Team Providers Care Radio Board Operator Name Role Phone Chester Allen MD, DDS Unavailable [email or web address] Mateo Neville DMD Unavailable Pcp, Unknown Primary Care Provider Unavailabl e Allergies No known active allergies Medications therapeutic multivitamin tablet Take 1 tablet by mouth 3 (three) times a week. Active VIMPAT 100 mg Tab TAKE 1 TABLET BY MOUTH EVERY 12 HOURS. INDICATIONS: ANTICONVULSANT MEDICATION THERAPY 06/11/19 22 Active cholecalciferol, vitamin D3, 25 mcg (1,000 unit) chewable tablet Take by mouth. Active magnesium oxide 250 mg (150 mg elemental) Tab Take 250 mg by mouth daily. Active cyanocobalamin, vitamin B-12, 100 MCG tablet Take 100 mcg by mouth daily. Active Social History Tobacco Use Types Packs/Day Years Used Date Smoking Tobacco: Former Smokeless Tobacco: Never Tobacco Cessation:Counseling Given: Not Answered Comments:Smoking History Packs/day: <=0.5 Alcohol Use Standard Drinks/Week Comments No 0 (1 standard drink = 0.6 oz pur e alcohol) Education Answer Date Recorded Are you interested in more education? Not on too e 08/15/2022 Are you concerned about learning? Not on file 08/15/2022 No 08/15/2022 No 08/15/2022 Digital Access Answer Date Recorded No 08/31/2022 No 08/31/2022 No 08/31/2022 Reliable internet access at home? Not on file 08/31/2022 Device with a working camera? Not on file Sex and Gender Information Value Date Recorded Sex Assigned at Not on file Legal Sex Male 6:53 PM EST Gender Identity Not on file Sexual Orientation Not on file Last Filed Vital Signs Vital Sign Reading Time Taken Comments Blood Pressure 219/131 06/12/2022 1:29 PM EST Pulse 90 06/12/2022 1:29 PM EST Temperature 36.8 C (98.2 F) 11/01/2017 10:02 AM EDT Respiratory Rate 18 11/01/2017 10:02 AM EDT Oxygen Saturation 95% 06/12/2022 1:29 PM EST Inhaled Oxygen Concentration - - Weight 96.2 kg (212 lb) 06/12/2022 1:29 PM EST Height 182.2 cm (5' 11.75 ) 06/12/2022 1:[address] Body Mass Index 28.95 06/12/2022 1:29 PM EST Plan of Treatment Health Maintenance Due Date Last Done Comments Dental Oral Exam 1958 Dental Prophylaxis 1958 Dental X-Ray: Bitewings 1958 LIPID PANEL 1958 DEPRESSION SCREENING 1970 SMOKING Hx and SMOKELESS TOBACCO SCREENING 10/17/1971 HEPATITIS C SCREENING 1976 SCREENING FOR DIABETES 1993 COLOGUARD 10/17/2003 COLONOSCOPY 10/17/2003 COLORECTAL CANCER SCREENING 10/17/2003 FIT TEST 10/17/2003 FOBT 10/17/2003 SIGMOIDOSCOPY 10/17/2003 VIRTUAL COLONOSCOPY 10/17/2003 PNEUMOCOCCAL VACCINES (50+ years) (1 of 1 - PCV) 2008 ZOSTER VACCINES (2 of 3) 12/20/2015 10/25/2015 ABDOMINAL AORTIC ANEURYSM (AAA) SCREENING 10/17/2023 INFLUENZA VACCINE (#1) 2024 , 02/13/2022, 03/09/2020, Additional history exists COVID-19 VACCINE (3 - season) 2024 07/08/2020, 06/16/2020 Adult Td,Tdap Booster 05/02/2027 05/02/2017 RSV VACCINE (1 - 1-dose 75+ series) 2033 HEPATITIS A VACCINES Completed 06/11/2008, 03/18/2007, 08/06/2006 HIB VACCINES Aged Out No longer eligi ble based on patient's age to complete this topic IPV VACCINES Aged Out No longer eligi ble based on patient's age to complete this topic MENINGOCOCCAL VACCINES (ACWY) Aged Out No longer eligible based on patient's age to complete this topic MENINGOCOCCAL VACCINES (B) Aged Out N o longer eligible based on patient's age to complete this topic Medical Devices Not on file Insurance MEDICARE PART A & B [facility] MEDICARE REPLACEMENT MEDICARE PART A & B [facility] MEDICARE REPLACEMENT MEDICARE PART A & B [facility] MEDICARE REPLACEMENT MEDICARE PART A & B MEDICARE REPLACEMENT MEDICARE PART A & B [facility] MEDICARE REPLACEMENT MEDICARE PART A & B [facility] MEDICARE REPLACEMENT MEDICARE PART A & B [facility] RE[facility] MEDICARE PART A & B [facility] MEDICARE REPLACEMENT MEDICARE PART A & B [employer] MEDICARE REPLACEMENT [facility] Care Teams Radio Board Operator Relationship Specialty Start Date End Date Pcp, Unknown PCP - General 06/04/22 Chester Allen MD, DDS [email or web address] director of automation 10/18/20 Mateo Neville DMD [address] [place] [address], [address] [place] [address] [email or web address] Nuclear Plant Operator 04/18/21 Additional Source Comments The information contained in this document represents components of the legal health record. It is not the complete legal health record.[facility]
--- OUTSIDE RECORDS SUMMARY | 2025-02-25 03:04 | XMS_ITS | Data Portability ---
Author Organization [facility], [facility] Address [address] [place] [address] Assessment No assessment recorded. Plan of Treatment Reminders Order Date Submit Date Provider Last Modified By Organization Details Last Modified Time Details Appointments None record ed. Lab None record ed. Referral None record ed. Procedures None record ed. Surgeries None record ed. Imaging XR, hand, 3 or more view - 3v rt hand, inpatient services rn, rm [id number] 09/04/19 24 [email or web address] Not available 13:13:48 Medication Orders None record ed. Patient TargetsNo targets recorded. Patient InstructionsNo instructions recorded. Reason for Referral None Reported. Medical Equipment None Reported. Allergies No known drug allergies Medications Name Sig Start Date Stop Date Status Note LastModified by Organization Details LastModified Time acyclovir 400 mg tablet active Not Available Not Available Not Available lacosamide 150 mg tablet active Not Available Not Available Not Available lacosamide 100 mg tablet TAKE 1 TABLET BY MOUTH EVERY 12 HOURS active Not Available Not Available No t Available Vitals Date Recorded Body height Body mass index (BMI) Body weight Provider Name and Address Organization Details Last Updated DateTime 09/04/2023 182.88 cm 28.5 kg/m2 21605.4 g DESTINEY BARRERA [facility] 09/04/2023 10:20:24 Social History None recorded. Functional Status None recorded. Mental Status None recorded. Family History Nothing Reported. Medical History No medical history recorded. Past Encounters Encounter ID Performer Location Encounter Start Date Encounter Closed Date Diagnosis/Indication Diagnosis SNOMED-CT Code Diagnosis ICD10 Code Diagnosis IMO Codes Diagnosis Note [id number] MD [facility] [address] [place] [address] 09/04/2023 09:27:33 09/13/2023 13:13:48 Pain of right hand [id number] 58585 M79.641 Contractur e of joint of right hand [id number] 48403 M24.541 Health Concerns Section Related Observation LastModified by Organization Lucía ls LastModified Time None Recorded Concern Status LastModified by Organization Details LastModified Time None Recorded Advance Directives Directive None Recorded Payers Insurance Date Sequence Insurance Name Policy Number Policy Macario Covered Member ID Macario Member ID Guarantor Name 09/13/2023 1 [employer] (MEDICARE REPLACEMENT/A DVANTAGE - PPO) [id number] Chester Joseph Israelsean [id number] Chester Leon 09/13/2023 2 [place] [facility] Chester Leon [id number] Chester Edward Notes Date Note Type Note Provider Name and Address Organization Details Recorded Time 09/04/2023 text/html ROS as noted in the HPI Diagnosis: Contracture fingers right [id number] male presents with an inability to let go of grasp objects in his right hand. The patient suffered an amputation of his left upper extremity sometime this past. His licensed investment sales assistant reports that he is able to grab objects but is unable to let go from. The patient had difficulty giving a history.Past family, medical, social history and review of systems has been reviewed, updated and is located in the patient s chart.Examination : Healthy appearing patient in no apparent distress. Alert and oriented. The patient holds his middle ring and small finger in flexion. He grabs with his thumb and index finger. It is not clear if he has control of the middle ring and small fingers or if he has the cognition to follow the command. No atrophy in either upper extremity. Brisk capillary refill in all digitsX-rays ordered, obtained, and reviewed today at [facility]: PA, lateral, oblique views of the right hand reveal no evidence of fracture or dislocation. The patient's fingers are extended on x-ray.Plan: The patient, his licensed investment sales assistant and I discussed the situation at length. I recommended an evaluation by a neurologist. They told me that that has been performed. I suggested that they have the neurologist send me her last office note so that I can understand the process involved in the patient's physical limitations. They will follow up at his discretion. Edison Floyd MD [address] [place] [address] [address], [place], [address], [facility] [place] [facility] 09/06/2023 18:26:00
== END 2025-02-24 15:57 | disposition home or self-care (01) ==
LOC: HO.HMCHD 14:37
PROVIDERS: PCP Physician Assistant Medical; Visit Provider Physician Assistant Medical
DX: S48.912A Complete traumatic amputation of left shoulder and upper arm, level unspecified, initial encounter (principal); G40.909 Epilepsy, unspecified, not intractable, without status epilepticus; Q28.2 Arteriovenous malformation of cerebral vessels; Z00.00 Encounter for general adult medical examination without abnormal findings

== ENCOUNTER → 2025-02-24 14:37 | Outpatient (BNVA) | payer MEDICARE, MEDICAID, SELFPAY | PROVIDERS: PCP Internal Medicine; Visit Provider Physician Assistant Medical | DX: Z00.00 Encounter for general adult medical examination without abnormal findings (principal); G40.909 Epilepsy, unspecified, not intractable, without status epilepticus; Q28.2 Arteriovenous malformation of cerebral vessels; Z86.73 Personal history of transient ischemic attack (TIA), and cerebral infarction without residual deficits | CPT/HCPCS: 96127; 99202 ==